=== PATIENT | male | born 1985 | race Caucasian/White ===

== ENCOUNTER 2018-10-17 14:30 | Emergency (ER) | payer OTHER | END 2018-10-17 19:30 | disposition home or self-care (01) | LOC: JER 14:30 ==

== ENCOUNTER 2022-01-22 02:29 | Emergency (ER) | payer OTHER ==
[2022-01-22 02:58] VITALS: BP 128/86; PULSE 64; RESP 18; TEMP 98.2; BMI 24.0
[2022-01-22] MEDS ORDERED: DICYCLOMINE HCL 20 MG TABLET PO ONE (03:21)
[2022-01-22] MEDS ORDERED: MAG HYDROX/AL HYDROX/SIMETH 30 ML UNIT-DOSE CUP PO ONE (03:21)
[2022-01-22] MEDS ORDERED: PANTOPRAZOLE 40 MG TABLET PO ONE ×2 (03:21→04:18)
[2022-01-22 04:17] LABS: BASO % 0.4 % (0-2.0); EOS % 3.5 % (0-4.5); HEMATOCRIT 44.4 % (35.4-49); HEMOGLOBIN 15.5 GM/dL (11.7-16.9); LYMPH % 31.3 % (8-40); MCH 29.9 pg (25.7-33.7); MCHC 34.9 g/dl (32.0-35.9); MEAN CELL VOLUME 85.6 fl (80-96); MEAN PLT VOLUME 9.3 fl (7.5-11.1); MONO % 8.2 % (3.8-10.2); NEUT % 56.6 % (42.8-82.8); PLATELET COUNT 169 10^3/uL (134-434); RBC 5.19 M/mm3 (4.00-5.60); RDW 13.3 % (11.9-15.9); WHITE BLOOD COUNT 6.9 K/mm3 (4.0-10.0)
[2022-01-22] MEDS ORDERED: DICYCLOMINE HCL 10 MG CAPSULE ONE (04:18)
[2022-01-22] MEDS ORDERED: MAG HYDROX/AL HYDROX/SIMETH 30 ML UNIT-DOSE CUP ONE (04:19)
[2022-01-22 04:34] LABS: CALCIUM 8.9 mg/dL (8.5-10.1)
[2022-01-22 04:35] LABS: BLOOD UREA NITROGEN 10.9 mg/dL (7-18)
[2022-01-22 04:37] LABS: CREATININE 0.9 mg/dL (0.55-1.3)
[2022-01-22 04:39] LABS: BILIRUBIN,TOTAL 1.6 mg/dL (0.2-1); TOT PROT 7.7 g/dl (6.4-8.2)
[2022-01-22 05:05] LABS: PH,URINE 6.5 (5.0-8.0); URINE APPEARANCE CLEAR; URINE BILIRUBIN NEGATIVE (NEGATIVE); URINE COLOR YELLOW; URINE GLUCOSE (UA) NEGATIVE (NEGATIVE); URINE KETONE NEGATIVE (NEGATIVE); URINE LEUK ESTERASE NEGATIVE (NEGATIVE); URINE NITRITE NEGATIVE (NEGATIVE); URINE PROTEIN NEGATIVE (NEGATIVE)
== END 2022-01-22 06:01 | disposition home or self-care (01) ==
LOC: JER 02:29
DX: R10.30 Lower abdominal pain, unspecified (principal)
CPT/HCPCS: 36415; 80053; 81003; 83690; 85025; 87086; 93005; 93010; 99284-25